=== PATIENT | male | born 1950 | race Caucasian/White ===

== ENCOUNTER 2017-08-15 14:36 | Inpatient (IN) | payer MEDICARE ==
[2017-08-15] MEDS ORDERED: Ondansetron ODT 4 MG TAB ONE (14:45)
[2017-08-15 15:05] LABS: #Basophils 0.1 thou/uL (0.0-0.2); #Eosinphils 0.1 thou/uL (0.0-0.7); #Lymphocytes 3.2 thou/uL (1.20-3.40); #Monocytes 0.4 thou/uL (0.11-0.59); #Neutrophils 2.9 thou/uL (1.40-6.50); %Basophils 1.6 % (0.0-1.0); %Eosinophils 1.3 % (0.0-10.0); %Lymphocytes 47.4 % (21.0-51.0); %Monocytes 6.1 % (0.0-10.0); %Neutrophils 43.6 % (42.0-75.0); Hemoglobin 15.1 g/dL (14.0-18.0); Mean Corpuscular HGB CONC 35.2 g/dL (32.0-36.0); Mean Corpuscular Hemoglobin 30.9 pg (27.0-31.0); Mean Corpuscular Volume 87.6 fl (80.0-94.0); Mean Platelet Volume 8.1 fL (7.4-10.4); Platelet Count 206 thou/uL (130-400); RBC Distribution Width 12.1 % (11.5-14.5); Red Blood Cell (RBC) Count 4.91 mill/uL (4.70-6.10); White Blood Cell (WBC) Count 6.7 thou/uL (4.8-10.8)
[2017-08-15 15:18] LABS: ALT (SGPT) 19 U/L (8-55); AST (SGOT) 19 U/L (5-34); Albumin 4.8 g/dL (3.4-4.8); Alkaline Phosphatase 64 U/L (40-150); Anion Gap 18 mmol/L (10-20); BUN (Urea Nitrogen) 19 mg/dL (8.4-25.7); Bilirubin, Total 0.7 mg/dL (0.2-1.2); Calc. Creatinine Clearance 0 mL/min (70-130); Carbon Dioxide 25 mmol/L (23-31); Chloride 102 mmol/L (98-107); Estimated GFR-MDRD 62; Globulin 3.3 g/dL (2.4-3.5); Glucose 136 mg/dL (80-115); Lipase 28 U/L (8-78); Potassium 3.5 mmol/L (3.5-5.1); Protein, Total 8.1 g/dL (5.8-8.1); Sodium 141 mmol/L (136-145)
[2017-08-15 15:19] LABS: CKMB 1.6 ng/mL (0-6.6); Troponin I Less than 0.010 ng/mL (< 0.028)
--- NOTE | 2017-08-15 15:22 | RAD ---
FRONTAL VIEW CHEST: Indication: Nausea, dizziness. FINDINGS: There is enlargement of the cardiac silhouette. No lobar consolidation, effusion, or pneumothorax. Os seous degenerative change is present. IMPRESSION: No focal consolidation. POS: [facility]
--- NOTE | 2017-08-15 15:29 | CT ---
CT OF BRAIN PERFORMED WITHOUT CONTRAST ENHANCEMENT: History: Syncope, dizziness, nausea, lightheadedness for 30 minutes. FINDINGS: There is fairly age appropriate ventricular and sulcal prominence. There are no signs of intracerebra l hemorrhage or extraaxial fluid collections. Mastoid air cells and visualized sinuses appear clear. IMPRESSION: No acute intracranial abnormalities. POS: [facility]
[2017-08-15 18:18] LABS: Troponin I 0.012 ng/mL (< 0.028)
[2017-08-15] MEDS ORDERED: Acetaminophen 325 MG TAB PO PRN (18:38)
[2017-08-15] MEDS ORDERED: Ondansetron HCl/PF 4 MG/2 ML Vial IVP PRN ×2 (18:38→20:06)
[2017-08-15] MEDS ORDERED: Ondansetron ODT 4 MG TAB SL PRN (18:38)
[2017-08-15] MEDS ORDERED: Sodium Chloride 0.9% 1,000 ML IV SCH (18:45)
[2017-08-15] MEDS ORDERED: HYDROcodone/Acetaminophen 5/325 mg Tablet PO PRN (20:06)
[2017-08-15] MEDS ORDERED: Ondansetron ODT 4 MG TAB PO PRN (20:06)
[2017-08-15 20:28] LABS: Free T4 (Free Thyroxine) 0.84 ng/dL (0.70-1.48); Thyroid Stimulating Hormone 0.8929 uIU/mL (0.35-4.94)
[2017-08-15 20:29] LABS: Troponin I Less than 0.010 ng/mL (< 0.028)
--- NOTE | 2017-08-15 20:36 | HP ---
DATE OF ADMISSION: 08/15/2017 CHIEF COMPLAINT: Lightheadedness. HISTORY OF PRESENT ILLNESS: This is a 67-year-old white male with a known history of type 2 diabetes mellitus, well-controlled, diagnosed 2 years ago. The patient was in his usual state of health at [facility], was watching television at around 1:30 p.m. this afternoon. He developed a sudden onset of dizz iness with lightheadedness and severe perspiration with sweating all over the body and he felt some s tomach upset, but did not have nausea and he went to the bathroom. He had a big bowel movement, was full of diarrhea. He is feeling very weak and tired and bit lethargic. He came to the ER and was no prerna to have a heart rate of 40 and low blood pressures in 70s, so the patient was started on IV fluid s. He was not given any atropine at that time and after giving IV fluids, his heart rate went up to like 50s and his blood sugars at that time was 150, so it was not hypoglycemia. The patient had a si milar episode a month ago and he reported this to his , but the best it off as the symptoms waved off. Now, the symptoms have been persistent. He continues to have dizziness when he is standing an d his blood pressures were noted to have orthostatic hypotension. The patient denies having any thyroid problems. Denied having any other medical problems. He is oth erwise in his usual good health. Denies taking any drugs. Denies drinking any alcohol recently. PAST MEDICAL HISTORY: 1. Type 2 diabetes mellitus. 2. Hypertension. 3. Hyperlipidemia. 4. 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 PAST SURGICAL HISTORY: The patient had a partial 2 inches of the colon was removed for a suspicious polyp, which was negative for malignancy. He had an appendectomy in the past and also had a left vasile al cyst were removed. The patient has a unilateral kidney. FAMILY HISTORY: The patient had a family history of coronary artery disease and her mother at t he age of 70. ALLERGIES: No known drug allergies. HOME MEDICATIONS: Home medications have been reconciled. Please see the medication list. REVIEW OF SYSTEMS: All 12 systems are reviewed with the patient thoroughly and found to be negative at this time. Systems reviewed HEENT, CVS, PROPERTY AND CASUALTY INSURANCE AGENT, respiratory, GI, , musculoskeletal, skin, integume ntary, psychiatric. PHYSICAL EXAMINATION: VITAL SIGNS: His blood pressures are 146/65 on sitting and on standing the blood pressures went down to 122/65. Heart rate is 53, respirations 16, saturations 92% on room air. GENERAL: The patient is moderately built and moderately nourished. He does not appear to be in acut e distress. HEENT: Atraumatic, normocephalic. PERRLA. Extraocular movements were intact. Oral mucosa is pink and moist. CARDIOVASCULAR: S1, S2 normal. No murmurs, rubs or gallops. LUNGS: Bilateral air entry was equal. No wheezing, no crackles. ABDOMEN: Soft, nontender, no guarding, no rebound tenderness. Bowel sounds are normal. MUSCULOSKELETAL: No calf tenderness. No pedal edema. No joint tenderness, no joint swelling. SKIN: No cyanosis, no erythema, no rash, no pallor. PROPERTY AND CASUALTY INSURANCE AGENT: Cranial nerve examination II-XII intact. No focal deficits were noted. PSYCHIATRIC: No signs of suicidal ideation. No signs of zachary. No signs of depression. LYMPHADENOPATHY: No evidence of any generalized lymph nodes were noted. LABORATORY DATA AND IMAGING: WBC 6.7, hemoglobin 15.1, hematocrit 43.0. Sodium 141, potassium 3.5, chloride is 102, BUN is 19, creatinine is 1.17, blood sugar is 136. Tropo alverto 0.010. AST and ALT were normal. Lipase is 28. Chest x-ray was done, which did not show any evidence of acute cardiopulmonary process. CT of the br ain was done, which did not show any evidence of acute intracranial hemorrhage. ASSESSMENT: 1. Acute symptomatic bradycardia. 2. Possible autonomic dysfunction. 3. Possible hyperthyroid state. 4. Type 2 diabetes mellitus. 5. Orthostatic hypotension. PLAN: 1. Plan is to consult Cardiology in the morning. We will do a 2D echo at this time and will repeat EKG for any worsening symptoms. If the heart rate drops less than 40 or any drop in the heart rate l ess than 50 with a drop in the blood pressures, we will do atropine 0.5 mg IV. We will consult Cardi ology right away. The patient most likely either has a sick sinus syndrome or may be needing a pacem arline. We will also consult Dr. Tran for Electrophysiology. 2. The patient will be closely monitored for any evidence of cardiac ischemia. We will continue the serial troponins. We will avoid the patient giving any beta blockers at this time. 3. The patient was never evaluated for a thyroid problem. We will do a TSH and free T4. The patien t also complains of tiredness and fatigue. 4. The patient has a history of type 2 diabetes mellitus, but it was diagnosed 2 years ago and was w ell controlled. There is also the possibility of autonomic dysfunction secondary to poorly controlle d diabetes. We will check the hemoglobin A1c to look further control of his blood sugars. We will r estart the patient's home medications. 5. Hypotension. The patient has orthostatic hypotension. We will start the patient on IV fluids at this time at 75 mL normal. 6. Deep venous thrombosis prophylaxis. Lovenox 40 mg subcutaneously daily. I spent 75 minutes with this patient.
[2017-08-15] MEDS: Famotidine/PF 20 mg/2ml Vial SLOW IVP SCH (20:51)
[2017-08-16 04:48] VITALS: BMI 31.8
[2017-08-16 05:34] LABS: #Basophils 0.1 thou/uL (0.0-0.2); #Eosinphils 0.1 thou/uL (0.0-0.7); #Lymphocytes 2.2 thou/uL (1.20-3.40); #Monocytes 0.5 thou/uL (0.11-0.59); #Neutrophils 3.7 thou/uL (1.40-6.50); %Basophils 1.1 % (0.0-1.0); %Eosinophils 1.3 % (0.0-10.0); %Monocytes 7.1 % (0.0-10.0); %Neutrophils 56.5 % (42.0-75.0); Hemoglobin 13.1 g/dL (14.0-18.0); Mean Corpuscular HGB CONC 34.3 g/dL (32.0-36.0); Mean Corpuscular Hemoglobin 32.3 pg (27.0-31.0); Mean Corpuscular Volume 94.2 fl (80.0-94.0); Mean Platelet Volume 7.3 fL (7.4-10.4); Platelet Count 195 thou/uL (130-400); Red Blood Cell (RBC) Count 4.06 mill/uL (4.70-6.10); White Blood Cell (WBC) Count 6.5 thou/uL (4.8-10.8)
[2017-08-16 05:40] LABS: Anion Gap 9 mmol/L (10-20); BUN (Urea Nitrogen) 19 mg/dL (8.4-25.7); Calc. Creatinine Clearance 103 mL/min (70-130); Carbon Dioxide 26 mmol/L (23-31); Cardiac Risk 5.1 (Less than 4.5); Chloride 107 mmol/L (98-107); Cholesterol 163 mg/dl (< 200 Desired); Estimated GFR-MDRD 75; Glucose 124 mg/dL (80-115); HDL Cholesterol 32 mg/dL (>60 Neg Risk); LDL Cholesterol, Calculated 113 mg/dL; Potassium 3.9 mmol/L (3.5-5.1); Sodium 138 mmol/L (136-145); Triglycerides 92 mg/dL (Less than 150)
[2017-08-16] MEDS: Sodium Chloride 0.9% 1,000 ML IV SCH ×2 (06:49→20:41)
[2017-08-16] MEDS: Aspirin 325 MG TAB PO SCH (09:46)
[2017-08-16] MEDS: Enoxaparin Sodium 40 MG/0.4 ML SYRINGE SC SCH (09:47)
[2017-08-16] MEDS: Famotidine/PF 20 mg/2ml Vial SLOW IVP SCH ×2 (09:47→20:41)
--- NOTE | 2017-08-16 11:53 | CON ---
DATE OF CONSULTATION: 08/16/2017 REASON FOR CONSULTATION: Presyncope and bradycardia. HISTORY OF PRESENT ILLNESS: Mr. Domingo is a pleasant 67-year-old white gentleman who comes to the hospital for evaluation of presyncope. He was at home, he felt lightheaded. He went to the bathroom, had a large bowel movement and diarrhea and felt presyncopal. Eventually, he decided to come into the hospital. He was found to have a heart rate in the 20s. Blood pressure was in the70s/40s. He was given IV fluids and he started to feel better. His heart rate has remained in the 40s, down to 40, the lowest currently at 58, feeling a little bit better. He has had this happen to him about 3-4 times in the last few weeks. PAST MEDICAL HISTORY: 1. Type 2 diabetes. 2. Hypertension. 3. Hyperlipidemia. 4. Right unilateral kidney. PAST SURGICAL HISTORY: 1. Two inches of colon removed for polyps suspicious for malignancy, but was negative. 2. Appendectomy. 3. Left renal cyst removal. 4. Unilateral kidney. FAMILY HISTORY: Coronary disease in her mother. She at age 70. ALLERGIES: No known drug allergies. OUTPATIENT MEDICATIONS: 1. Metformin 1000 mg p.o. b.i.d. 2. Gemfibrozil 600 mg p.o. b.i.d. REVIEW OF SYSTEMS: A 12-point review of systems was done and is all negative unless stated in the history of present illness. PHYSICAL EXAMINATION: VITAL SIGNS: Temperature 97.7, pulse 52, respiration rate 12, satting 97% on room air, blood pressure 110/66. GENERAL: Awake, alert, oriented x3, in no distress. HEENT: Normocephalic, atraumatic. NECK: Supple. LUNGS: Clear. CARDIOVASCULAR: S1, S2, no S3 or S4. There is a grade 2/6 systolic murmur at right upper sternal border. ABDOMEN: Soft, positive bowel sounds. EXTREMITIES: No edema. SKIN: Warm and dry. Orthostatic vital signs show blood pressure lying down 146/65, blood pressure sitting 125/60, standing 122/65. LABORATORY WORK: Reviewed. Imaging was reviewed. CT of the brain was unremarkable. Chest x-ray was unremarkable. ASSESSMENT AND PLAN: 1. Bradycardia: Most likely symptomatic from his bradycardia. At this point in time, I think it is very reasonable to do a pacemaker to hopefully avoid any more of these episodes and this is not the case, may be related to autonomic dysfunction versus orthostatic hypotension. However, at this time, I do recommend doing a pacemaker as his heart rate has remained in the low 40s. 2. Orthostatic hypotension: Agree with IV fluids, better at this time, no longer orthostatic. 3. We will have to do risk stratification as an outpatient when he is discharged, he will need a stress test. Echocardiogram will be done later today. Thank you for letting us to participate in the care of your patient. We will follow. FEDERICO
--- NOTE | 2017-08-16 14:48 | PDOC.PN ---
- Subjective Encounter Start Date: 08/16/17 Encounter Start Time: 09:30 Patient iss een today, alert and oriented. Pt is seen by cardiology and EP and suggested pacemaker placment tomorrow. - Objective Resuscitation Status: Resuscitation Status FULL:Full Resuscitation MAR Reviewed: Yes Vital Signs & Weight: Vital Signs (12 hours) Temp Pulse Pulse Pulse Pulse Pulse Resp 08/16/17 08:32 44 L 46 L 48 L 43 L 08/16/17 03:32 97.7 F 52 L 12 BP BP BP BP BP Pulse Ox 08/16/17 08:32 110/66 114/66 115/69 134/67 08/16/17 03:32 117/61 97 Weight Weight 221 lb 9.6 oz I&O: 08/15/17 08/16/17 08/17/17 06:59 06:59 06:59 Intake Total 1300 Output Total 500 Balance 800 Result Diagrams: 08/16/17 04:33 08/16/17 04:33 Additional Labs: Accuchecks 08/16/17 08/16/17 08/15/17 10:57 06:25 20:43 POC Glucose 108 108 160 H Radiology Reviewed by me: Yes Phys Exam - Physical Examination HEENT: PERRLA, moist MMs Neck: no nodes, no JVD Respiratory: no wheezing, no rales Cardiovascular: RRR, no significant murmur Gastrointestinal: soft, non-tender Musculoskeletal: no edema, pulses present Psychiatric: normal affect, A&O x 3 Dx/Plan (1) Symptomatic bradycardia Code(s): R00.1 - BRADYCARDIA, UNSPECIFIED Status: Acute Comment: Pt will be getting A pacemaker tomorrow and will be Followed by Cardiac work up for ischedmia by a Stress test. (2) Orthostatic hypotension Code(s): I95.1 - ORTHOSTATIC HYPOTENSION Status: Acute Comment: Improved with Iv fluids, Will d/c Fluids now, (3) Moderate dehydration Code(s): E86.0 - DEHYDRATION Status: Acute Comment: Improved with IV fluids , (4) DM type 2 (diabetes mellitus, type 2) Status: Acute Comment: Well controlled, Hold off on Oral hypoglycemiac and Start after the Surgery tomorrow. check HbA1C - Plan cont current plan of care, plan discussed w/ family, PT/OT, social insurance adviser, DVT proph w/SCDs * . - Discharge Day Encounter end time: 10:10 Review of Systems - Review of Systems Constitutional: weakness, malaise Eyes: negative: Pain, Vision Change, Conjunctivae Inflammation, Eyelid Inflammation, Redness, Other ENT: negative: Ear Pain, Ear Discharge, Nose Pain, Nose Discharge, Nose Congestion, Mouth Pain, Mouth Swelling, Throat Pain, Throat Swelling, Other Respiratory: negative: Cough, Dry, Shortness of Breath, Hemoptysis, SOB with Excertion, Pleuritic Pain, Sputum, Wheezing Cardiovascular: light headedness Gastrointestinal: negative: Nausea, Vomiting, Abdominal Pain, Diarrhea, Constipation, Melena, Hematochezia, Other Genitourinary: negative: Dysuria, Frequency, Incontinence, Hematuria, Retention , Other Musculoskeletal: negative: Neck Pain, Shoulder Pain, Arm Pain, Back Pain, Hand Pain, Leg Pain, Foot Pain, Other - Medications/Allergies Allergies/Adverse Reactions: Allergies Allergy/AdvReac Type Severity Reaction Status Date / Time No Known Allergies Allergy Verified 08/15/17 19:43 Medications: Current Medications Hydrocodone Bitart/Acetaminophen ([place] 5/325) 1 tab PO Q4H PRN PRN Reason: Moderate Pain (4-6) Aspirin (Aspirin) 325 mg PO DAILY [facility] Last Admin: 08/16/17 09:46 Dose: 325 mg Enoxaparin Sodium (Lovenox) 40 mg SC 0900 [facility] Last Admin: 08/16/17 09:47 Dose: 40 mg Famotidine (Pepcid) 20 mg SLOW IVP Q12HR [facility] Last Admin: 08/16/17 09:47 Dose: 20 mg Sodium Chloride (Normal Saline 0.9%) 1,000 mls @ 75 mls/hr IV .[id number] [facility] Last Admin: 08/16/17 06:49 Dose: 1,000 mls Ondansetron HCl (Zofran Odt) 4 mg PO Q6H PRN PRN Reason: Nausea/Vomiting Ondansetron HCl (Zofran) 4 mg IVP Q6H PRN PRN Reason: Nausea/Vomiting Sodium Chloride (Flush - Normal Saline) 10 ml IVF Q12HR [facility] Last Admin: 08/16/17 09:53 Dose: Not Given Sodium Chloride (Flush - Normal Saline) 10 ml IVF PRN PRN PRN Reason: Saline Flush
[2017-08-16 15:08] LABS: Hemoglobin A1c 5.7 % (4.0-6.0)
--- NOTE | 2017-08-16 17:26 | CON ---
DATE OF SERVICE: 08/16/2017 ELECTROPHYSIOLOGY FOLLOWUP NOTE REFERRING PHYSICIAN: Julián Cheatham MD I am seeing Mr. Domingo at our [facility] as an electrophysiology product development consultant. His problems are: 1. Symptomatic bradycardia. A. Known history of slow heart rate with increasing fatigue suggestive of sick sinus syndrome. B. Current admission with near syncopal spell associated with abdominal discomforts. 2. Known history of prior heart disease. 3. Coronary artery risk factors. A. Type 2 diabetes. B. Hypertension. C. Hyperlipidemia. D. Elevated BMI. ALLERGIES: None noted. MEDICATIONS AT HOME: Included gemfibrozil and metformin. SUBJECTIVE: Mr. Domingo is here after an episode of nausea, vomiting, abdominal discomfort, and diarrhea associated with severe dizziness and nearly passing out. He was found to be very tired and lethargic. In the ER, he was noted to have sinus bradycardia in the 40s, which continued throughout his admission. He is not on any AV amelia blocking agents. He had 1 prior near syncopal spell, which improved with sugar intake couple of years ago. Otherwise, he does not have syncopal spells. On the other hand, he does report progressive fatigue and weakness and not able to exert himself as he likes to. He denies stroke-like symptoms. No angina. No PND, orthopnea, lower extremity edema to suggest fluid overload. No fever, chills, cough, or burning urination. The abdominal discomforts are resolved now. Rest of 12-point system otherwise unremarkable. PAST MEDICAL HISTORY: As above. SOCIAL HISTORY: The patient denies smoking, ETOH, or drug use. FAMILY HISTORY: Noncontributory, but mother at age 70 with coronary artery disease. OBJECTIVE DATA: VITAL SIGNS: Blood pressure is 110/60 supine, 115/69 standing up; heart rate 44 , not significantly increasing up to 48 on standing. GENERAL: He is an alert and oriented man in no apparent distress. NECK: Supple. Jugular veins are not distended. CHEST: Coarse without crackles. CARDIAC: Heart sounds are regular with rate and rhythm. No murmur or gallop. ABDOMEN: Benign. Bowel sounds positive. EXTREMITIES: Lower extremities without edema, clubbing, or cyanosis. Pulses are adequate. NEUROLOGIC: The patient is nonfocal. MUSCULOSKELETAL: Without joint swelling or deformities. SKIN: Without rash. DATABASE: EKG and telemetry strips reveal sinus rhythm with marked bradycardia in the 40s-50s. LABORATORY DATA: White count 6.5, hemoglobin 13.1, platelet count is 195. Sodium 138, potassium 3.9, BUN is 19, creatinine 0.99. ASSESSMENT AND PLAN: Mr. Domingo is a pleasant 67-year-old man with prior history of diabetes who presents with marked bradycardia, who presents with a near syncopal spell in the setting of abdominal discomforts and diarrhea. That seemed to have resolved now. No other infectious signs are present. The bradycardia although could be acutely worsened to vagal stimuli, (like the abdominal discomfort) seems to be present chronically. He has prior history of slow heart rates and also remote history of syncope as well, and progressive fatigue and tiredness. Based on these, he likely has chronic sick sinus syndrome. I think it is reasonable to consider pacemaker implantation. I have discussed the rationale pros and cons about that. He understands and willing to proceed. He will likely benefit further evaluation with echocardiogram as well. We will schedule him for a pacemaker implantation promptly. FEDERICO
[2017-08-17] MEDS ORDERED: CEFAZOLIN/Water 2 GM/20 ML SYRINGE ONE (06:40)
[2017-08-17] MEDS: Sodium Chloride 0.9% 1,000 ML IV SCH ×2 (07:18→09:00)
[2017-08-17] MEDS ORDERED: Fentanyl 100 MCG/2 ML VIAL ONE (07:43)
[2017-08-17] MEDS ORDERED: Lidocaine 1% (PF) 30 ML VIAL ONE (08:14)
[2017-08-17] MEDS: Famotidine/PF 20 mg/2ml Vial SLOW IVP SCH (08:58)
[2017-08-17] MEDS: Enoxaparin Sodium 40 MG/0.4 ML SYRINGE SC SCH (09:01)
[2017-08-17] MEDS: Aspirin 325 MG TAB PO SCH (09:02)
[2017-08-17] MEDS ORDERED: Acetaminophen/Codeine 30-300mg Tablet PO PRN ×2 (09:21→09:22)
[2017-08-17] MEDS ORDERED: traMADol HCl 50 MG TAB PO PRN (09:23)
[2017-08-17] MEDS ORDERED: Bisacodyl 5 MG TAB PO PRN (09:23)
[2017-08-17] MEDS ORDERED: Bisacodyl 10 MG SUPP PR PRN (09:23)
[2017-08-17] MEDS ORDERED: diphenhydrAMINE 25 MG CAP PO PRN (09:23)
[2017-08-17] MEDS ORDERED: Nitroglycerin 0.4 MG TAB (25 Tab Bottle) SL PRN (09:23)
[2017-08-17] MEDS ORDERED: Acetaminophen 325 MG TAB PO PRN (09:23)
[2017-08-17] MEDS ORDERED: Ondansetron HCl/PF 4 MG/2 ML Vial IVP PRN (09:23)
[2017-08-17] MEDS ORDERED: Mag-Al 1200 mg/1200 mg/30 ML UDCUP PO PRN (09:23)
[2017-08-17] MEDS ORDERED: Silver Sulfadiazine 1% Cream 50 GM JAR TOP PRN (09:23)
[2017-08-17] MEDS ORDERED: Temazepam 15 MG CAP PO PRN (09:23)
[2017-08-17] MEDS ORDERED: Cephalexin 250 MG CAP PO SCH (12:00)
[2017-08-17 12:12] VITALS: TEMP 96.4
--- NOTE | 2017-08-17 12:21 | PDOC.CTH ---
Cardiology Progress Note - Subjective He had her pacemaker placed and he is now A paced in the 60's. He states he feels the same as yesterday but no presyncope, lightheadednes. - Objective Vital Signs Temp Pulse Resp BP BP Pulse Ox 08/17/17 11:30 96.4 F L 60 14 122/73 99 08/17/17 08:50 97.6 F 60 18 137/67 94 L 08/17/17 04:00 97.7 F 53 L 18 116/65 94 L Weight 223 lb 3.2 oz 08/16/17 08/17/17 08/18/17 06:59 06:59 06:59 Intake Total 1300 3520 Output Total 500 2925 Balance 800 595 - Physical Examination General/Neuro: alert & oriented x3, NAD Neck: no JVD present Lungs: unlabored respirations Heart: RRR Abdomen: NT/ND Extremities: + edema B (no edema) - Telemetry Telemetry Rhythm: Apaced. - Labs Result Diagrams: 08/16/17 04:33 08/16/17 04:33 Troponin/CKMB CK-MB (CK-2) 1.6 ng/mL (0-6.6) 08/15/17 14:46 Troponin I Less than 0.010 ng/mL (< 0.028) 08/15/17 19:35 - Assessment/Plan 1. Pre syncope 2. Bradycardia, symptomatic 3. Orthostatic hypotension. 4. Diarrhea PLAN: - Doing well from cardiac standpoint. - He may be discharged home at any time. - Will plan on seeing him back in clinic in 1 month. - Will sign off, please call with any questions.
[2017-08-17] MEDS ORDERED: Iopamidol 370 76% 50 ML VIAL FS ONE (12:56)
--- NOTE | 2017-08-17 14:10 | DIS ---
DATE OF ADMISSION: 08/15/2017 DATE OF DISCHARGE: 08/17/2017 ADMITTING DIAGNOSIS: Acute symptomatic bradycardia. DISCHARGE DIAGNOSIS: Acute symptomatic bradycardia. SECONDARY DIAGNOSES: 1. Type 2 diabetes mellitus. 2. Autonomic dysfunction. 3. Hypertension. 4. Hyperlipidemia. 5. Orthostatic hypotension. CONSULTANTS INVOLVING THE CARE: Dr. Gaytan from Cardiology and Dr. Tran from Electrophysiology. HISTORY OF PRESENT ILLNESS AND HOSPITAL COURSE: In brief, this is a 67-year-old white male with a kn own history of type 2 diabetes mellitus, well-controlled, diagnosed 2 years ago. The patient was in his usual state of health at home and was watching television and he developed a sudden onset of dizz iness, lightheadedness, and severe perspiration with sweating all over the body and felt some stomach upset, but did not have nausea and he went to the bathroom, had a big bowel movement as well as diar claudette. He is feeling very weak and tired, but lethargic. He came to the ER and noted to have a heart rate of 40 and low blood pressures in 70s. The patient was started on IV fluids and he was not give n any atropine, but his heart rate was up to like 50s and blood pressures were stable at that time, s o patient was brought to the [facility] as a direct admit for further evaluation of the mackenzie ycardia. The patient was seen by Dr. Tran and based on the EKG and patient's symptoms, it was decide d to go for pacemaker placement. The patient tolerated the procedure very well. He had a 2D echo wh ich showed a good ejection fraction and no other valvular abnormalities. The patient was also seen b y Cardiology, Dr. Gaytan who suggested ischemic workup later after discharge. The patient tolerated the procedure well and there were no complications and the patient was discharged home in stable cond ition. During this admission, patient also had low blood pressures. On standing, it was orthostatic , so he was given IV fluids which did help him a little bit and the patient was discharged home in [facility] condition. PHYSICAL EXAMINATION: On day of discharge: VITAL SIGNS: Blood pressure is 122/73, heart rate is 60, respiratory rate is 14, saturation 98% on r oom air. GENERAL: The patient is moderately built and moderately nourished, does not appears to be in acute d istress. CARDIOVASCULAR: S1, S2 normal. No murmurs, rubs or gallops. LUNGS: Bilateral air entry was equal. No wheezing, no crackles. ABDOMEN: Soft, nontender, no guarding, no rebound tenderness. Bowel sounds normal. MUSCULOSKELETAL: No calf tenderness. No pedal edema. No joint tenderness, no joint swelling. SKIN: No cyanosis, no erythema, no rash, no pallor. MOLD CAPPER HELPER: Cranial nerve examination II-XII intact. No focal deficits were noted. HOME MEDICATIONS: Patient will continue on gemfibrozil 600 mg p.o. b.i.d. and metformin 1000 mg p.o. b.i.d. DISCHARGE INSTRUCTIONS: Continue activity as tolerated. Advised to follow up with Cardiology in 2 w eeks. Advised to follow with Cardiology recommendations regarding the pacemaker, regarding amount of weight he should be lifting and the amount of activity he should be doing. Patient will follow up w ith the primary care physician in 1-2 weeks. ' Continue with diabetic diet. I spent 35 minutes with this patient.
[2017-08-17 14:29] VITALS: BP 131/66
[2017-08-17] MEDS ORDERED: Famotidine 20 MG TAB PO SCH (21:00)
== END 2017-08-17 16:21 | disposition home or self-care (01) | DRG 243 ==
LOC: SCSER 14:36 → 2NO 16:30
PROVIDERS: ADMIT Internal Medicine; ATTEND Internal Medicine
PROC: 0JH606Z Insertion of Pacemaker, Dual Chamber into Chest Subcutaneous Tissue and Fascia, Open Approach (ICD-10-PCS; principal; 2017-08-17)
PROC: 02H63JZ Insertion of Pacemaker Lead into Right Atrium, Percutaneous Approach (ICD-10-PCS; 2017-08-17)
PROC: 02HK3JZ Insertion of Pacemaker Lead into Right Ventricle, Percutaneous Approach (ICD-10-PCS; 2017-08-17)
DX: R00.1 Bradycardia, unspecified (principal); Q60.0 Renal agenesis, unilateral; I49.5 Sick sinus syndrome; E11.9 Type 2 diabetes mellitus without complications; I95.1 Orthostatic hypotension; I10 Essential (primary) hypertension; E78.5 Hyperlipidemia, unspecified; Z90.49 Acquired absence of other specified parts of digestive tract; F45.8 Other somatoform disorders; E86.0 Dehydration
CPT/HCPCS: 33208; 36005; 36415; 36416; 70450; 71045; 75820; 80048; 80053; 80061; 82553; 83036; 83690; 84439; 84443; 84484; 85025; 93005; 94760; 96360; A4216; C1785; C1898; G8978-GP-CK; G8979-GP-CI; G8987-GO-CI; G8988-GO-CI; G8989-GO-CI; J1650; J2001; J3010; J3490; Q0162; S0028

== ENCOUNTER 2017-10-09 09:02 | Outpatient (CLI) | payer MEDICARE ==
[2017-10-09] MEDS ORDERED: ISOVUE-370 76%-LOCM 1 ML ONE (16:10)
== END 2017-10-09 09:03 | disposition home or self-care (01) ==
LOC: BICCT 09:02
PROVIDERS: ATTEND Internal Medicine Cardiovascular Disease
DX: R94.39 Abnormal result of other cardiovascular function study (principal); I70.90 Unspecified atherosclerosis
CPT/HCPCS: 71275

== ENCOUNTER 2017-12-24 12:14 | Outpatient (CLI) | payer MEDICARE ==
[2017-12-24 12:42] LABS: Hemoglobin 14.7 g/dL (14.0-18.0); Mean Corpuscular HGB CONC 34.9 g/dL (32.0-36.0); Mean Corpuscular Hemoglobin 31.5 pg (27.0-31.0); Mean Corpuscular Volume 90.2 fL (78.0-98.0); Mean Platelet Volume 7.4 fL (7.4-10.4); Platelet Count 160 thou/uL (130-400); RBC Distribution Width 12.9 % (11.5-14.5); Red Blood Cell (RBC) Count 4.66 mill/uL (4.70-6.10); White Blood Cell (WBC) Count 6.9 thou/uL (4.8-10.8)
[2017-12-24 12:44] LABS: PTT 26.7 SEC (22.9-36.1); Prothrombin Time 13.2 SEC (12.0-14.7)
[2017-12-24 12:58] LABS: ALT (SGPT) 14 U/L (8-55); AST (SGOT) 16 U/L (5-34); Albumin 4.4 g/dL (3.4-4.8); Alkaline Phosphatase 66 U/L (40-150); Anion Gap 13 mmol/L (10-20); BUN (Urea Nitrogen) 15 mg/dL (8.4-25.7); Bilirubin, Total 0.7 mg/dL (0.2-1.2); Calc. Creatinine Clearance 0 mL/min (70-130); Calcium 9.3 mg/dL (7.8-10.44); Carbon Dioxide 23 mmol/L (23-31); Chloride 107 mmol/L (98-107); Estimated GFR-MDRD 76; Globulin 2.8 g/dL (2.4-3.5); Glucose 136 mg/dL (80-115); Potassium 4.3 mmol/L (3.5-5.1); Protein, Total 7.2 g/dL (5.8-8.1); Sodium 139 mmol/L (136-145)
--- NOTE | 2017-12-24 20:00 | EKG ---
Test Reason : Blood Pressure : / mmHG Vent. Rate : 063 BPM Atrial Rate : 063 BPM P-R Int : 190 ms QRS Dur : 090 ms QT Int : 388 ms P-R-T Axes : 029 006 012 degrees QTc Int : 397 ms Normal sinus rhythm Minimal voltage criteria for LVH, may be normal variant Borderline ECG When compared with ECG of 15-AUG-2017 14:39, No significant change was found Confirmed by DR. Magaly SIDDIQI ([id number]) on 12/24/2017 8:00:16 PM Referred By: NINA Confirmed By:DR. Magaly SIDDIQI
== END 2017-12-24 12:15 | disposition home or self-care (01) ==
LOC: LABBT 12:14
PROVIDERS: ATTEND Internal Medicine Cardiovascular Disease
DX: Z01.818 Encounter for other preprocedural examination (principal); R07.9 Chest pain, unspecified
CPT/HCPCS: 80053; 85027; 85610; 85730; 93005; 93010

== ENCOUNTER 2017-12-28 06:23 | Day surgery (SDC) | payer MEDICARE ==
[2017-12-24 12:32] VITALS: BMI 31.1
[2017-12-28] MEDS ORDERED: Lidocaine 1% (PF) 30 ML VIAL ONE (06:48)
[2017-12-28 07:32] LABS: Cardiac Risk 2.6 (Less than 4.5)
[2017-12-28] MEDS ORDERED: Midazolam HCl 2 mg/2 ml Vial ONE (08:22)
[2017-12-28] MEDS ORDERED: Fentanyl 100 MCG/2 ML VIAL ONE (08:22)
== END 2017-12-28 11:52 | disposition home or self-care (01) ==
LOC: SDC 06:23
PROVIDERS: ATTEND Internal Medicine Cardiovascular Disease
PROC: B2151ZZ Fluoroscopy of Left Heart using Low Osmolar Contrast (ICD-10-PCS; principal; 2017-12-28)
PROC: B2111ZZ Fluoroscopy of Multiple Coronary Arteries using Low Osmolar Contrast (ICD-10-PCS; 2017-12-28)
DX: I25.118 Atherosclerotic heart disease of native coronary artery with other forms of angina pectoris (principal); I25.84 Coronary atherosclerosis due to calcified coronary lesion; E78.00 Pure hypercholesterolemia, unspecified; E11.9 Type 2 diabetes mellitus without complications; E78.5 Hyperlipidemia, unspecified; Z79.82 Long term (current) use of aspirin; Z79.84 Long term (current) use of oral hypoglycemic drugs; Z79.899 Other long term (current) drug therapy
CPT/HCPCS: 80061; 93458; C1769; 99152; J1644; J2001; J2250; J3010

== ENCOUNTER 2019-03-16 12:23 | Emergency (ER) | payer MEDICARE ==
--- NOTE | 2019-03-16 12:51 | RAD ---
EXAM: Two views chest PROVIDED CLINICAL HISTORY: Cough COMPARISON: 08/15/2017 FINDINGS: Cardiac and mediastinal silhouette appears within normal limits. Lungs appear free of significant opa city. No pleural fluid or pneumothorax apparent. Left subclavian cardiac pacing device noted lead tips overlying the expected locations of RA and RV. Location is noted. Degenerative changes involve t he thoracic spine. IMPRESSION: No evidence for an acute cardiopulmonary process.
[2019-03-16 13:02] LABS: #Basophils 0.1 thou/uL (0.0-0.2); #Eosinphils 0.1 thou/uL (0.0-0.7); #Lymphocytes 2.5 thou/uL (1.20-3.40); #Monocytes 0.6 thou/uL (0.11-0.59); #Neutrophils 6.3 thou/uL (1.40-6.50); %Basophils 1.2 % (0.0-1.0); %Eosinophils 0.9 % (0.0-10.0); %Lymphocytes 26.1 % (21.0-51.0); %Monocytes 6.1 % (0.0-10.0); %Neutrophils 65.7 % (42.0-75.0); Hemoglobin 15.9 g/dL (14.0-18.0); Mean Corpuscular HGB CONC 35.2 g/dL (32.0-36.0); Mean Corpuscular Hemoglobin 32.7 pg (27.0-31.0); Mean Platelet Volume 6.8 fL (7.4-10.4); Platelet Count 224 thou/uL (130-400); RBC Distribution Width 13.1 % (11.5-14.5); Red Blood Cell (RBC) Count 4.87 mill/uL (4.70-6.10); White Blood Cell (WBC) Count 9.5 thou/uL (4.8-10.8)
[2019-03-16 13:13] LABS: ALT (SGPT) 21 U/L (8-55); AST (SGOT) 13 U/L (5-34); Albumin 4.5 g/dL (3.4-4.8); Alkaline Phosphatase 69 U/L (40-150); Anion Gap 20 mmol/L (10-20); BUN (Urea Nitrogen) 22 mg/dL (8.4-25.7); Bilirubin, Total 0.7 mg/dL (0.2-1.2); Calc. Creatinine Clearance 0 mL/min (70-130); Calcium 9.9 mg/dL (7.8-10.44); Carbon Dioxide 21 mmol/L (23-31); Chloride 104 mmol/L (98-107); Estimated GFR-MDRD 73; Globulin 3.2 g/dL (2.4-3.5); Glucose 99 mg/dL (80-115); Potassium 4.5 mmol/L (3.5-5.1); Protein, Total 7.7 g/dL (5.8-8.1); Sodium 140 mmol/L (136-145)
== END 2019-03-16 14:43 | disposition home or self-care (01) ==
LOC: SCSER 12:23
DX: J06.9 Acute upper respiratory infection, unspecified (principal); I95.9 Hypotension, unspecified; R53.1 Weakness; E78.00 Pure hypercholesterolemia, unspecified; E11.9 Type 2 diabetes mellitus without complications; Z79.84 Long term (current) use of oral hypoglycemic drugs; Z79.899 Other long term (current) drug therapy
CPT/HCPCS: 71046; 80053; 85025; 93005; 96365; J1956